=== PATIENT | male | born 1995 | race Two or more races ===

== ENCOUNTER 2025-07-06 11:25 | Emergency (ER) | payer OTHER ==
[~2025-07-06] VITALS: Ht 185.4 cm; Wt 98.4 kg
[2025-07-06] MEDS ORDERED: DILTIAZEM HCL 25 MG/5 ML VIAL IV ONE ×2 (11:51→12:00)
[2025-07-06] MEDS ORDERED: 0.9 % SODIUM CHLORIDE 1,000 ML IV ONE (12:00)
[2025-07-06 12:30] LABS: BASO % 0.5 % (0.1-1.2); EOS # 0.20 (0.04-0.54); EOS % 2.5 % (0.7-7.0); LYMPH # 2.55 (1.18-3.74); LYMPH % 31.5 % (19.3-53.1); MEAN PLATELET VOLUME 10.00 fl (9.4-12.4); MONO # 0.72 (0.24-0.82); MONO % 8.9 % (4.7-12.5); NEUT # 4.58 (1.56-6.13); NEUT % 56.5 % (34.0-71.1); RED CELL DISTRIBUTION WIDTH 12.5 % (11.6-14.4)
[2025-07-06 13:01] LABS: INR 1.08
[2025-07-06 13:05] LABS: URINE APPEARANCE Clear; URINE BILIRRUBIN Negative (NEGATIVE); URINE BLOOD Trace; URINE COLOR Yellow; URINE GLUCOSE Negative (NEGATIVE); URINE KETONE Negative (NEGATIVE); URINE LEUKOCYTE Negative; URINE NITRATE Negative; URINE PROTEIN Negative (NEGATIVE); URINE UROBILINOGEN 0.2 E.U./dl
[2025-07-06 13:09] LABS: URINE BACTERIA 4.7 uL (0.0-1933); URINE EPITHELIAL CELLS 2.0 uL (0.0-38.8); URINE RBC 6.0 uL (0.0-20.8); URINE WBC 5.0 uL (0.0-23.2)
[2025-07-06 13:13] LABS: URINE CAST 0.00 uL (0.0-1.40)
[2025-07-06 13:17] VITALS: BP 110/68; O2SAT 100
[2025-07-06 13:25] LABS: ALT/SGPT 31.0 U/L (12-78); AST/SGOT 22.0 U/L (15-37); BILIRUBIN TOTAL 1.18 mg/dL (0.3-1.2); BUN CREA RATIO 10.0 (7.0-25.0); CREATININE SERUM 1.02 mg/dL (0.70-1.30); GFR 86.96; GLOBULINA 3.4 G/DL (2.4-3.5); GLUCOSE FASTING 103.0 mg/dL (65-100); OSMOLALITY SERUM 277.0 MOSM/KG (275-295); PHOSPHOKINASE CREATININE 130.0 U/L (39-308); TSH 0.544 uIU/mL (0.358-3.74)
== END 2025-07-06 17:02 | disposition home or self-care (01) ==
LOC: ER 11:25
DX: I47.10 Supraventricular tachycardia, unspecified (principal)